=== PATIENT | male | born 1960 | race Caucasian/White ===

== ENCOUNTER → 2018-08-31 14:25 | Outpatient (CLI) | payer BC | END | disposition home or self-care (01) | LOC: D.MRI 08-29 13:30 | DX: M25.511 Pain in right shoulder (principal) ==

== ENCOUNTER → 2019-02-13 12:38 | Outpatient (CLI) | payer BC ==
[~2019-02-13 12:38] MED LIST: CIPRO500 MG PO; FLAGYL500 MG PO; GABAPENTIN100 MG PO; KLONOPIN1 MG PO; MOBIC7.5 MG PO; ULTRAM50 MG PO
== END | disposition home or self-care (01) ==
LOC: D.CT 12:38
DX: K66.8 Other specified disorders of peritoneum (principal); R10.30 Lower abdominal pain, unspecified

== ENCOUNTER 2019-02-16 14:41 | Inpatient (IN) | payer BC ==
[2019-02-16] MEDS ORDERED: ULTRAM50 MG PO (14:54)
[2019-02-16] MEDS ORDERED: GABAPENTIN100 MG PO (14:54)
[2019-02-16] MEDS ORDERED: MOBIC7.5 MG PO (14:54)
[2019-02-16] MEDS ORDERED: KLONOPIN1 MG PO (14:55)
[2019-02-16] MEDS ORDERED: CIPRO500 MG PO (14:55)
[2019-02-16] MEDS ORDERED: FLAGYL500 MG PO (14:55)
[2019-02-16 15:50] LABS: BASOPHILS 0.2 % (0-2); EOSINOPHILS 0.2 % (0-7); HEMATOCRIT 45.9 % (42.0-54.0); HEMOGLOBIN 15.8 g/dL (13.5-17.5); IMMATURE GRANULOCYTES 0.4 % (0-5); LYMPHOCYTES 12.9 % (15-50); MCH 30.9 pg (26.0-34.0); MCHC 34.4 g/dL (31.0-37.0); MCV 89.8 fL (80.0-100.0); MEAN PLATELET VOLUME 9.1 fL (7.4-10.4); MONOCYTES 8.3 % (2-11); PLATELET COUNT 275 10x3/uL (130-400); RBC 5.11 10x6/uL (4.20-6.10); RDW 13.1 % (11.5-14.5); WBC 10.9 10x3/uL (4.8-10.8)
[2019-02-16 16:14] LABS: ALBUMIN 2.6 g/dL (3.4-5.0); ALKALINE PHOSPHATASE 57 U/L (46-116); ALT (SGPT) 9 U/L (10-68); BILIRUBIN - TOTAL 0.56 mg/dL (0.2-1.3); CALC OSMOLALITY 276 mosm/kg (275-300); CALCIUM 8.2 mg/dL (8.5-10.1); CARBON DIOXIDE 30.6 mmol/L (21.0-32.0); CHLORIDE - SERUM 99 mmol/L (98-107); CREATININE - SERUM 1.2 mg/dL (0.6-1.3); GLUCOSE 141 mg/dL (74-106); POTASSIUM - SERUM 3.5 mmol/L (3.5-5.1); PROTEIN - SERUM 7.2 g/dL (6.4-8.2); SODIUM 137 mmol/L (136-145); UREA NITROGEN 15 mg/dL (7-18); eGFR NON AFRICAN AMERICAN 66 mL/min (90-120)
[2019-02-16 16:17] LABS: APPEARANCE HAZY (CLEAR); BILIRUBIN NEGATIVE (NEGATIVE); COLOR DK YELLOW (YELLOW); GLUCOSE NEGATIVE (NEGATIVE); KETONE NEGATIVE (NEGATIVE); NITRITE NEGATIVE (NEGATIVE); PROTEIN NEGATIVE (NEGATIVE); UROBILINOGEN NORMAL (NORMAL)
[2019-02-16 16:18] LABS: AMYLASE - SERUM 23 U/L (25-115); LIPASE 95 U/L (73-393)
[2019-02-16 16:20] LABS: TROPONIN-I < 0.017 ng/mL (0.000-0.060)
[2019-02-16 20:00] VITALS: BP 105/52
[2019-02-16 20:12] VITALS: BP 105/52; BMI 28.9
[2019-02-17] VITALS: BP 119/63
[2019-02-17 06:24] LABS: BASOPHILS 0.2 % (0-2); EOSINOPHILS 1.4 % (0-7); HEMATOCRIT 38.8 % (42.0-54.0); HEMOGLOBIN 13.2 g/dL (13.5-17.5); IMMATURE GRANULOCYTES 0.6 % (0-5); LYMPHOCYTES 20.6 % (15-50); MCH 30.4 pg (26.0-34.0); MCV 89.4 fL (80.0-100.0); MONOCYTES 16.9 % (2-11); NEUTROPHILS 60.3 % (40-80); PLATELET COUNT 258 10x3/uL (130-400); RBC 4.34 10x6/uL (4.20-6.10); RDW 13.3 % (11.5-14.5); WBC 8.4 10x3/uL (4.8-10.8)
[2019-02-17 06:41] LABS: CALC OSMOLALITY 277 mosm/kg (275-300); CALCIUM 7.7 mg/dL (8.5-10.1); CARBON DIOXIDE 27.3 mmol/L (21.0-32.0); CHLORIDE - SERUM 106 mmol/L (98-107); CREATININE - SERUM 0.9 mg/dL (0.6-1.3); GLUCOSE 109 mg/dL (74-106); POTASSIUM - SERUM 3.5 mmol/L (3.5-5.1); SODIUM 139 mmol/L (136-145); eGFR NON AFRICAN AMERICAN > 90 mL/min (90-120)
[2019-02-17 06:45] LABS: UREA NITROGEN 10 mg/dL (7-18)
[2019-02-17 09:54] VITALS: BP 116/59
[2019-02-17 13:43] VITALS: BP 137/82
--- NOTE | 2019-02-17 16:01 | MORECARE ---
CASE MANAGEMENT DISCHARGE SUMMARY PATIENT: HEMALATHA GUIDRY UNIT: [id number] ADM DATE: 02/16/19 AGE: 58 : 56 SEX: M ROOM/BED: D.2232 AUTHOR: SONDRA SALMERON PHYSICIAN: REFERRING PHYSICIAN: PAN VALLADARES MD DATE OF SERVICE: 02/17/19 Discharge Plan Patient Name: [facility]ALATHA [facility]UIDRY [facility] [facility] 1960 Planned Disposition: Home Anticipated Discharge Date: Discharge Date: Expected LOS: Initial Reviewer: [email or web address] Initial Review Date: 02/16/2019 Generated: 02/17/19 5:01 pm Patient Name: HEMALATHA GUIDRY Page [id number] at 1601 All edits/amendments must be made on the electronic document DICTATION DATE: 02/17/19 1600 TELEVISION SCHEDULE COORDINATOR: CONCEPCIÓN 02/17/19 1600 RPT#: [id number] DC DATE: STATUS: ADM IN [facility] [address] [place] [address] END OF REPORT
--- NOTE | 2019-02-17 16:08 | MORECARE ---
CASE MANAGEMENT DISCHARGE SUMMARY PATIENT: HEMALATHA GUIDRY UNIT: [id number] ADM DATE: 02/16/19 AGE: 58 : 56 SEX: M ROOM/BED: D.2232 AUTHOR: SONDRA SALMERON PHYSICIAN: REFERRING PHYSICIAN: PAN VALLADARES MD DATE OF SERVICE: 02/17/19 Discharge Plan Patient Name: HEMALATHA GUIDRY [facility] [facility] 1960 Planned Disposition: Home Anticipated Discharge Date: Discharge Date: Expected LOS: Initial Reviewer: [email or web address] Initial Review Date: 02/16/2019 Generated: 02/17/19 5:08 pm DCPIA - Discharge Planning Initial Assessment Updated by [email or web address]: Shakira Story on 02/17/19 4:03 pm * Is the patient Alert and Oriented? Yes * How many steps to enter\exit or inside your home? 3 & 10 * PCP ALLEGRA CARROLL * Pharmacy [facility] * Preadmission Environment Home Alone * ADLs Independent * Equipment None * Other Equipment N/A * List name and contact numbers for known caregivers / representatives who currently or will assist patient after discharge: ESTEFANY GUIDRY- [employer]THER- [phone] * Verbal permission to speak to the caregivers and representatives has been obtained from the patient. No * Community resources currently utilized None * Please name any agencies selected above. N/A * Additional services required to return to the preadmission environment? No * Can the patient safely return to the preadmission environment? Yes * Has this patient been hospitalized within the prior 30 days at any hospital? No Last DP export: 02/17/19 3:01 pm Patient Name: HEMALATHA GUIDRY Page [id number] at 1608 All edits/amendments must be made on the electronic document DICTATION DATE: 02/17/191607 GARMENT MENDER: CONCEPCIÓN 02/17/191607 RPT#: [id number] DC DATE: STATUS: ADM IN [facility] [address] [place] [address] END OF REPORT
--- NOTE | 2019-02-17 16:15 | MORECARE ---
CASE MANAGEMENT DISCHARGE SUMMARY PATIENT: HEMALATHA GUIDRY UNIT: [id number] ADM DATE: 02/16/19 AGE: 58 : 56 SEX: M ROOM/BED: D.2232 AUTHOR: JARON,DOC PHYSICIAN: REFERRING PHYSICIAN: PAN VALLADARES MD DATE OF SERVICE: 02/17/19 Discharge Plan Patient Name: HEMALATAH GUIDRY Facility: [facility]:[place] : 1960 Planned Disposition: Home Anticipated Discharge Date: Discharge Date: Expected LOS: Initial Reviewer: [email or web address] Initial Review Date: 02/16/2019 Generated: 02/17/19 5:15 pm Comments DCP- Discharge Planning Updated by [email or web address]: Shakira Story on 02/17/19 3:[address] CM MET WITH PATIENT AT THE BEDSIDE. ALERT AND ORIENTED X4. PLANS TO RETURN TO HIS HOME AT DISCHARGE. WILL HAVE TRANSPORTATION. DENIES ANY NEEDS. DOES NOT REQUIRE ANY SERVICES. WAS INDEPENDENT IN HIS CARE. ANSWERS QUESTIONS W/ SHORT SENTENCES. HE HAS 3 STEPS TO ENTER HIS HOME. HAS 10 STEPS TO GET UPSTAIRS. RAILING IS PRESENT. PCP- DR ESTEFANY [facility] DENIES ANY NEEDS AT THIS TIME. C/O CHILLS . CM ADVISED INTERMODAL DISPATCHER TO NOTIFY HIS NURSE. CM WILL FOLLOW TO ASSIST IF APPROPRIATE. DCPIA - Discharge Planning Initial Assessment Updated by [email or web address]: Shakira Story on 02/17/19 4:03 pm * Is the patient Alert and Oriented? Yes * How many steps to enter\exit or inside your home? 3 & 10 * PCP DR ESTEFANY MESA - [facility] * Pharmacy [facility] * Preadmission Environment Home Alone * ADLs Independent * Equipment None * Other Equipment N/A * List name and contact numbers for known caregivers / representatives who currently or will assist patient after discharge: ESTEFANY CHAO- BROTHER- [phone] * Verbal permission to speak to the caregivers and representatives has been obtained from the patient. No * Community resources currently utilized None * Please name any agencies selected above. N/A * Additional services required to return to the preadmission environment? No * Can the patient safely return to the preadmission environment? Yes * Has this patient been hospitalized within the prior 30 days at any hospital? No Last DP export: 02/17/19 3:08 pm Patient Name: HEMALATHA GUIDRY Page [id number] at 1615 All edits/amendments must be made on the electronic document DICTATION DATE: 02/17/191614 PROFESSIONAL HEALTHCARE REPRESENTATIVE: CONCEPCIÓN 02/17/191614 RPT#: [id number] DC DATE: STATUS: ADM IN [facility] [address] [place] [address] END OF REPORT
[2019-02-17 17:49] VITALS: BP 111/63
[2019-02-17 20:00] VITALS: BP 116/67
[2019-02-18] VITALS: BP 108/59
[2019-02-18 03:00] VITALS: BP 130/76
[2019-02-18 08:10] LABS: BASOPHILS 0.3 % (0-2); EOSINOPHILS 1.5 % (0-7); HEMATOCRIT 37.3 % (42.0-54.0); HEMOGLOBIN 12.5 g/dL (13.5-17.5); IMMATURE GRANULOCYTES 0.6 % (0-5); LYMPHOCYTES 17.2 % (15-50); MCHC 33.5 g/dL (31.0-37.0); MCV 89.7 fL (80.0-100.0); MEAN PLATELET VOLUME 8.8 fL (7.4-10.4); MONOCYTES 12.7 % (2-11); NEUTROPHILS 67.7 % (40-80); PLATELET COUNT 254 10x3/uL (130-400); RBC 4.16 10x6/uL (4.20-6.10); RDW 13.3 % (11.5-14.5); WBC 8.8 10x3/uL (4.8-10.8)
[2019-02-18 08:15] LABS: ALKALINE PHOSPHATASE 40 U/L (46-116); ALT (SGPT) 8 U/L (10-68); BILIRUBIN - TOTAL 0.42 mg/dL (0.2-1.3); CALC OSMOLALITY 276 mosm/kg (275-300); CALCIUM 7.7 mg/dL (8.5-10.1); CARBON DIOXIDE 25.9 mmol/L (21.0-32.0); CHLORIDE - SERUM 105 mmol/L (98-107); CREATININE - SERUM 0.9 mg/dL (0.6-1.3); GLUCOSE 156 mg/dL (74-106); POTASSIUM - SERUM 3.3 mmol/L (3.5-5.1); PROTEIN - SERUM 5.8 g/dL (6.4-8.2); SODIUM 138 mmol/L (136-145); UREA NITROGEN 7 mg/dL (7-18); eGFR NON AFRICAN AMERICAN > 90 mL/min (90-120)
[2019-02-18 10:07] VITALS: BP 159/59
[2019-02-18 15:23] VITALS: BMI 28.9
[2019-02-18 15:40] LABS: % SATURATION 17 % (15-55); IRON 25 ug/dl (35-150); TOTAL IRON BIND CAPACITY 143 ug/dl (260-445); UNSAT IRON BIND CAPACITY 118 ug/dl (150-375)
[2019-02-18 18:12] VITALS: BP 138/84
[2019-02-18 21:57] VITALS: BP 121/66
[2019-02-19 05:19] VITALS: BP 134/50
[2019-02-19 05:32] LABS: BASOPHILS 0.1 % (0-2); EOSINOPHILS 0.2 % (0-7); HEMATOCRIT 37.4 % (42.0-54.0); HEMOGLOBIN 12.3 g/dL (13.5-17.5); IMMATURE GRANULOCYTES 0.6 % (0-5); LYMPHOCYTES 12.3 % (15-50); MCH 29.9 pg (26.0-34.0); MCHC 32.9 g/dL (31.0-37.0); MCV 90.8 fL (80.0-100.0); MEAN PLATELET VOLUME 8.8 fL (7.4-10.4); MONOCYTES 14.7 % (2-11); NEUTROPHILS 72.1 % (40-80); PLATELET COUNT 255 10x3/uL (130-400); RBC 4.12 10x6/uL (4.20-6.10); RDW 13.4 % (11.5-14.5)
[2019-02-19 06:02] LABS: WBC 11.3 10x3/uL (4.8-10.8)
[2019-02-19 06:22] LABS: ALBUMIN 1.9 g/dL (3.4-5.0); BILIRUBIN - TOTAL 0.36 mg/dL (0.2-1.3); CALCIUM 7.5 mg/dL (8.5-10.1); CARBON DIOXIDE 27.5 mmol/L (21.0-32.0); CREATININE - SERUM 1.1 mg/dL (0.6-1.3); POTASSIUM - SERUM 3.5 mmol/L (3.5-5.1); PROTEIN - SERUM 5.7 g/dL (6.4-8.2)
[2019-02-19 08:55] VITALS: BP 119/71
[2019-02-19 09:17] LABS: FOLATE (FOLIC ACID) - SERUM 4.3 ng/mL (>3.0)
[2019-02-19 12:24] VITALS: BP 113/68
[2019-02-19 16:45] VITALS: BP 126/69
[2019-02-19 21:18] VITALS: BP 114/64
[2019-02-20 05:27] LABS: BASOPHILS 0.2 % (0-2); EOSINOPHILS 0.5 % (0-7); HEMATOCRIT 35.9 % (42.0-54.0); IMMATURE GRANULOCYTES 0.5 % (0-5); LYMPHOCYTES 18.6 % (15-50); MCHC 33.4 g/dL (31.0-37.0); MCV 89.8 fL (80.0-100.0); MEAN PLATELET VOLUME 8.7 fL (7.4-10.4); MONOCYTES 19.6 % (2-11); NEUTROPHILS 60.6 % (40-80); PLATELET COUNT 255 10x3/uL (130-400); RDW 13.3 % (11.5-14.5)
[2019-02-20 05:40] LABS: ALBUMIN 1.8 g/dL (3.4-5.0); ALKALINE PHOSPHATASE 40 U/L (46-116); BILIRUBIN - TOTAL 0.38 mg/dL (0.2-1.3); CALCIUM 7.3 mg/dL (8.5-10.1); CARBON DIOXIDE 24.9 mmol/L (21.0-32.0); CHLORIDE - SERUM 104 mmol/L (98-107); CREATININE - SERUM 0.9 mg/dL (0.6-1.3); GLUCOSE 104 mg/dL (74-106); POTASSIUM - SERUM 3.2 mmol/L (3.5-5.1); PROTEIN - SERUM 5.6 g/dL (6.4-8.2); SODIUM 137 mmol/L (136-145); eGFR NON AFRICAN AMERICAN > 90 mL/min (90-120)
[2019-02-20 05:53] LABS: WBC 8.1 10x3/uL (4.8-10.8)
[2019-02-20 05:59] VITALS: BP 117/68
[2019-02-20 06:21] LABS: ALT (SGPT) 9 U/L (10-68); CALC OSMOLALITY 270 mosm/kg (275-300); UREA NITROGEN 5 mg/dL (7-18)
[2019-02-20 08:18] LABS: IMMUNOGLOBULIN A 299 mg/dL (90-386)
[2019-02-20 09:41] VITALS: BP 120/76
[2019-02-20 15:09] VITALS: BP 111/69
[2019-02-20 17:54] VITALS: BP 113/66
[2019-02-20 22:22] VITALS: BP 121/61
[2019-02-21 05:16] VITALS: BP 112/54
[2019-02-21 06:16] LABS: IGG SUBCLASS 1 358 mg/dL (248-810); IGG SUBCLASS 2 396 mg/dL (130-555); IGG SUBCLASS 3 39 mg/dL (15-102); IGG SUBCLASS 4 28 mg/dL (2-96); IMMUNOGLOBULIN G 808 mg/dL (700-1600)
[2019-02-21 07:18] LABS: BASOPHILS 0.2 % (0-2); EOSINOPHILS 0.1 % (0-7); HEMATOCRIT 37.6 % (42.0-54.0); HEMOGLOBIN 12.8 g/dL (13.5-17.5); IMMATURE GRANULOCYTES 0.3 % (0-5); LYMPHOCYTES 13.2 % (15-50); MCH 30.1 pg (26.0-34.0); MCV 88.5 fL (80.0-100.0); MEAN PLATELET VOLUME 8.5 fL (7.4-10.4); MONOCYTES 16.4 % (2-11); NEUTROPHILS 69.8 % (40-80); PLATELET COUNT 264 10x3/uL (130-400); RBC 4.25 10x6/uL (4.20-6.10); RDW 13.1 % (11.5-14.5); WBC 9.6 10x3/uL (4.8-10.8)
[2019-02-21 07:34] LABS: ALBUMIN 1.9 g/dL (3.4-5.0); ALKALINE PHOSPHATASE 38 U/L (46-116); BILIRUBIN - TOTAL 0.59 mg/dL (0.2-1.3); CALC OSMOLALITY 276 mosm/kg (275-300); CALCIUM 7.7 mg/dL (8.5-10.1); CARBON DIOXIDE 24.9 mmol/L (21.0-32.0); CHLORIDE - SERUM 107 mmol/L (98-107); CREATININE - SERUM 0.9 mg/dL (0.6-1.3); GLUCOSE 125 mg/dL (74-106); POTASSIUM - SERUM 3.5 mmol/L (3.5-5.1); PROTEIN - SERUM 5.9 g/dL (6.4-8.2); SODIUM 140 mmol/L (136-145); UREA NITROGEN 4 mg/dL (7-18); eGFR NON AFRICAN AMERICAN > 90 mL/min (90-120)
[2019-02-21 07:38] LABS: ALT (SGPT) 12 U/L (10-68)
[2019-02-21 09:05] VITALS: BP 119/73
[2019-02-21 12:47] VITALS: BP 126/69
[2019-02-21 20:34] VITALS: BP 127/69
[2019-02-22 05:15] VITALS: BP 101/59
[2019-02-22 05:52] LABS: BASOPHILS 0.1 % (0-2); EOSINOPHILS 0.5 % (0-7); HEMATOCRIT 35.5 % (42.0-54.0); HEMOGLOBIN 12.1 g/dL (13.5-17.5); IMMATURE GRANULOCYTES 0.4 % (0-5); MCH 30.3 pg (26.0-34.0); MCHC 34.1 g/dL (31.0-37.0); MCV 88.8 fL (80.0-100.0); MEAN PLATELET VOLUME 8.4 fL (7.4-10.4); MONOCYTES 13.2 % (2-11); NEUTROPHILS 76.8 % (40-80); PLATELET COUNT 271 10x3/uL (130-400); RDW 13.3 % (11.5-14.5); WBC 9.6 10x3/uL (4.8-10.8)
[2019-02-22 06:11] LABS: ALBUMIN 1.7 g/dL (3.4-5.0); ALKALINE PHOSPHATASE 41 U/L (46-116); ALT (SGPT) 10 U/L (10-68); BILIRUBIN - TOTAL 0.52 mg/dL (0.2-1.3); CALCIUM 7.4 mg/dL (8.5-10.1); CARBON DIOXIDE 25.7 mmol/L (21.0-32.0); CHLORIDE - SERUM 101 mmol/L (98-107); CREATININE - SERUM 0.9 mg/dL (0.6-1.3); GLUCOSE 125 mg/dL (74-106); POTASSIUM - SERUM 3.4 mmol/L (3.5-5.1); PROTEIN - SERUM 5.6 g/dL (6.4-8.2); SODIUM 135 mmol/L (136-145); eGFR NON AFRICAN AMERICAN > 90 mL/min (90-120)
[2019-02-22 06:13] LABS: CALC OSMOLALITY 268 mosm/kg (275-300); UREA NITROGEN 6 mg/dL (7-18)
[2019-02-22 08:31] VITALS: BP 116/69
[2019-02-22 13:02] VITALS: BP 116/71
[2019-02-22 16:44] VITALS: BP 118/67
[2019-02-22 19:08] LABS: OVA + PARASITE EXAM Final report (())
[2019-02-22 20:01] VITALS: BP 121/68
[2019-02-23 01:25] VITALS: BP 113/77
[2019-02-23 04:57] VITALS: BP 104/61
[2019-02-23 05:37] LABS: BASOPHILS 0.2 % (0-2); EOSINOPHILS 0.2 % (0-7); HEMATOCRIT 36.9 % (42.0-54.0); HEMOGLOBIN 12.7 g/dL (13.5-17.5); IMMATURE GRANULOCYTES 0.6 % (0-5); LYMPHOCYTES 8.1 % (15-50); MCH 30.5 pg (26.0-34.0); MCHC 34.4 g/dL (31.0-37.0); MCV 88.7 fL (80.0-100.0); MEAN PLATELET VOLUME 8.4 fL (7.4-10.4); MONOCYTES 13.4 % (2-11); NEUTROPHILS 77.5 % (40-80); PLATELET COUNT 287 10x3/uL (130-400); RBC 4.16 10x6/uL (4.20-6.10); WBC 9.6 10x3/uL (4.8-10.8)
[2019-02-23 06:05] LABS: CALC OSMOLALITY 272 mosm/kg (275-300); CALCIUM 7.5 mg/dL (8.5-10.1); CARBON DIOXIDE 26.3 mmol/L (21.0-32.0); CHLORIDE - SERUM 103 mmol/L (98-107); CREATININE - SERUM 0.8 mg/dL (0.6-1.3); GLUCOSE 127 mg/dL (74-106); POTASSIUM - SERUM 3.3 mmol/L (3.5-5.1); SODIUM 137 mmol/L (136-145); UREA NITROGEN 5 mg/dL (7-18); eGFR NON AFRICAN AMERICAN > 90 mL/min (90-120)
[2019-02-23 09:06] VITALS: BP 102/66
[2019-02-23 13:53] VITALS: BP 95/57
[2019-02-23 16:24] VITALS: BP 121/75
[2019-02-23 20:25] VITALS: BP 138/77
[2019-02-24 00:25] VITALS: BP 94/54
[2019-02-24 03:41] VITALS: BP 103/56
[2019-02-24 05:17] LABS: BASOPHILS 0.2 % (0-2); EOSINOPHILS 0.3 % (0-7); HEMATOCRIT 34.7 % (42.0-54.0); HEMOGLOBIN 11.7 g/dL (13.5-17.5); IMMATURE GRANULOCYTES 0.7 % (0-5); LYMPHOCYTES 15.4 % (15-50); MCH 29.9 pg (26.0-34.0); MCHC 33.7 g/dL (31.0-37.0); MCV 88.7 fL (80.0-100.0); MEAN PLATELET VOLUME 8.3 fL (7.4-10.4); MONOCYTES 14.8 % (2-11); NEUTROPHILS 68.6 % (40-80); PLATELET COUNT 298 10x3/uL (130-400); RBC 3.91 10x6/uL (4.20-6.10); RDW 13.3 % (11.5-14.5); WBC 8.7 10x3/uL (4.8-10.8)
[2019-02-24 05:27] LABS: CALC OSMOLALITY 276 mosm/kg (275-300); CALCIUM 7.2 mg/dL (8.5-10.1); CARBON DIOXIDE 26.2 mmol/L (21.0-32.0); CHLORIDE - SERUM 105 mmol/L (98-107); CREATININE - SERUM 0.9 mg/dL (0.6-1.3); GLUCOSE 107 mg/dL (74-106); POTASSIUM - SERUM 3.4 mmol/L (3.5-5.1); SODIUM 140 mmol/L (136-145); eGFR NON AFRICAN AMERICAN > 90 mL/min (90-120)
[2019-02-24 05:29] LABS: UREA NITROGEN 7 mg/dL (7-18)
[2019-02-24 09:08] VITALS: BP 111/68
[2019-02-24 13:36] VITALS: BP 105/66
[2019-02-24 18:14] VITALS: BP 115/69
[2019-02-24 19:50] VITALS: BP 114/67
[2019-02-25 04:28] VITALS: BP 115/66
[2019-02-25 04:55] LABS: BASOPHILS 0.1 % (0-2); EOSINOPHILS 0.8 % (0-7); HEMATOCRIT 35.1 % (42.0-54.0); IMMATURE GRANULOCYTES 0.5 % (0-5); LYMPHOCYTES 13.5 % (15-50); MCH 30.3 pg (26.0-34.0); MCHC 34.2 g/dL (31.0-37.0); MCV 88.6 fL (80.0-100.0); MEAN PLATELET VOLUME 7.9 fL (7.4-10.4); MONOCYTES 13.1 % (2-11); PLATELET COUNT 308 10x3/uL (130-400); RBC 3.96 10x6/uL (4.20-6.10); RDW 13.1 % (11.5-14.5); WBC 7.5 10x3/uL (4.8-10.8)
[2019-02-25 05:07] LABS: CALC OSMOLALITY 277 mosm/kg (275-300); CALCIUM 7.5 mg/dL (8.5-10.1); CHLORIDE - SERUM 105 mmol/L (98-107); CREATININE - SERUM 0.9 mg/dL (0.6-1.3); GLUCOSE 119 mg/dL (74-106); POTASSIUM - SERUM 3.6 mmol/L (3.5-5.1); SODIUM 140 mmol/L (136-145); UREA NITROGEN 7 mg/dL (7-18); eGFR NON AFRICAN AMERICAN > 90 mL/min (90-120)
[2019-02-25 09:01] VITALS: BP 97/61
[2019-02-25 12:57] VITALS: BP 131/75
[2019-02-25 20:00] VITALS: BP 98/59
[2019-02-26 04:00] VITALS: BP 98/66
[2019-02-26 05:37] LABS: BASOPHILS 0.5 % (0-2); EOSINOPHILS 2.2 % (0-7); HEMATOCRIT 35.2 % (42.0-54.0); HEMOGLOBIN 11.9 g/dL (13.5-17.5); IMMATURE GRANULOCYTES 0.9 % (0-5); MCH 30.3 pg (26.0-34.0); MCHC 33.8 g/dL (31.0-37.0); MCV 89.6 fL (80.0-100.0); MEAN PLATELET VOLUME 8.2 fL (7.4-10.4); MONOCYTES 13.5 % (2-11); NEUTROPHILS 61.9 % (40-80); PLATELET COUNT 330 10x3/uL (130-400); RBC 3.93 10x6/uL (4.20-6.10); RDW 13.2 % (11.5-14.5); WBC 6.5 10x3/uL (4.8-10.8)
[2019-02-26 05:52] LABS: CALC OSMOLALITY 276 mosm/kg (275-300); CALCIUM 7.7 mg/dL (8.5-10.1); CARBON DIOXIDE 28.8 mmol/L (21.0-32.0); CHLORIDE - SERUM 103 mmol/L (98-107); CREATININE - SERUM 0.9 mg/dL (0.6-1.3); GLUCOSE 122 mg/dL (74-106); POTASSIUM - SERUM 3.3 mmol/L (3.5-5.1); SODIUM 139 mmol/L (136-145); UREA NITROGEN 8 mg/dL (7-18); eGFR NON AFRICAN AMERICAN > 90 mL/min (90-120)
[2019-02-26 09:34] VITALS: BP 101/65
[2019-02-26 13:38] VITALS: BP 136/70
[2019-02-26 18:14] VITALS: BP 96/59
[2019-02-26 20:00] VITALS: BP 90/60
[2019-02-27 04:00] VITALS: BP 99/64
[2019-02-27 05:25] LABS: BASOPHILS 0.3 % (0-2); EOSINOPHILS 1.5 % (0-7); HEMOGLOBIN 11.7 g/dL (13.5-17.5); IMMATURE GRANULOCYTES 0.5 % (0-5); LYMPHOCYTES 18.4 % (15-50); MCHC 33.4 g/dL (31.0-37.0); MCV 89.7 fL (80.0-100.0); MEAN PLATELET VOLUME 8.1 fL (7.4-10.4); MONOCYTES 11.8 % (2-11); NEUTROPHILS 67.5 % (40-80); PLATELET COUNT 372 10x3/uL (130-400); RDW 13.3 % (11.5-14.5); WBC 7.8 10x3/uL (4.8-10.8)
[2019-02-27 05:42] LABS: CALC OSMOLALITY 274 mosm/kg (275-300); CALCIUM 7.7 mg/dL (8.5-10.1); CARBON DIOXIDE 29.9 mmol/L (21.0-32.0); CHLORIDE - SERUM 102 mmol/L (98-107); CREATININE - SERUM 0.9 mg/dL (0.6-1.3); GLUCOSE 99 mg/dL (74-106); POTASSIUM - SERUM 3.6 mmol/L (3.5-5.1); SODIUM 138 mmol/L (136-145); UREA NITROGEN 10 mg/dL (7-18); eGFR NON AFRICAN AMERICAN > 90 mL/min (90-120)
[2019-02-27 09:37] VITALS: BP 103/63
[2019-02-27 20:00] VITALS: BP 107/65
[2019-02-28 04:00] VITALS: BP 104/52
[2019-02-28 05:49] LABS: BASOPHILS 0.3 % (0-2); EOSINOPHILS 1.9 % (0-7); HEMATOCRIT 35.8 % (42.0-54.0); IMMATURE GRANULOCYTES 0.7 % (0-5); MCH 30.4 pg (26.0-34.0); MCHC 33.5 g/dL (31.0-37.0); MCV 90.6 fL (80.0-100.0); MEAN PLATELET VOLUME 7.9 fL (7.4-10.4); MONOCYTES 14.9 % (2-11); NEUTROPHILS 65.2 % (40-80); PLATELET COUNT 392 10x3/uL (130-400); RBC 3.95 10x6/uL (4.20-6.10); RDW 13.3 % (11.5-14.5); WBC 7.4 10x3/uL (4.8-10.8)
[2019-02-28 06:07] LABS: ALBUMIN 1.7 g/dL (3.4-5.0); ALKALINE PHOSPHATASE 36 U/L (46-116); ALT (SGPT) 9 U/L (10-68); BILIRUBIN - TOTAL 0.39 mg/dL (0.2-1.3); CALC OSMOLALITY 276 mosm/kg (275-300); CARBON DIOXIDE 29.9 mmol/L (21.0-32.0); CHLORIDE - SERUM 104 mmol/L (98-107); CREATININE - SERUM 0.9 mg/dL (0.6-1.3); GLUCOSE 114 mg/dL (74-106); POTASSIUM - SERUM 3.8 mmol/L (3.5-5.1); SODIUM 139 mmol/L (136-145); eGFR NON AFRICAN AMERICAN > 90 mL/min (90-120)
[2019-02-28 06:08] LABS: UREA NITROGEN 7 mg/dL (7-18)
[2019-02-28 08:35] VITALS: BP 107/59
[2019-02-28 12:37] VITALS: BP 110/67
[2019-02-28 17:47] VITALS: BP 104/57
[2019-02-28 20:00] VITALS: BP 117/63
[2019-03-01] VITALS: BP 116/69
[2019-03-01 04:00] VITALS: BP 110/74
[2019-03-01 06:36] LABS: BASOPHILS 0 % (0-2); EOSINOPHILS 0 % (0-7); HEMATOCRIT 38.8 % (42.0-54.0); IMMATURE GRANULOCYTES 0.6 % (0-5); LYMPHOCYTES 8.8 % (15-50); MCH 30.4 pg (26.0-34.0); MCHC 33.5 g/dL (31.0-37.0); MCV 90.7 fL (80.0-100.0); MEAN PLATELET VOLUME 8.2 fL (7.4-10.4); MONOCYTES 1.9 % (2-11); NEUTROPHILS 88.7 % (40-80); PLATELET COUNT 431 10x3/uL (130-400); RBC 4.28 10x6/uL (4.20-6.10); RDW 13.3 % (11.5-14.5); WBC 5.3 10x3/uL (4.8-10.8)
[2019-03-01 06:48] LABS: ALKALINE PHOSPHATASE 38 U/L (46-116); ALT (SGPT) 11 U/L (10-68); BILIRUBIN - TOTAL 0.35 mg/dL (0.2-1.3); CALCIUM 8.4 mg/dL (8.5-10.1); CARBON DIOXIDE 27.7 mmol/L (21.0-32.0); CHLORIDE - SERUM 102 mmol/L (98-107); CREATININE - SERUM 0.9 mg/dL (0.6-1.3); PROTEIN - SERUM 6.6 g/dL (6.4-8.2); SODIUM 138 mmol/L (136-145); eGFR NON AFRICAN AMERICAN > 90 mL/min (90-120)
[2019-03-01 06:50] LABS: CALC OSMOLALITY 281 mosm/kg (275-300); GLUCOSE 215 mg/dL (74-106); POTASSIUM - SERUM 4.5 mmol/L (3.5-5.1); UREA NITROGEN 12 mg/dL (7-18)
[2019-03-01 07:59] VITALS: BP 103/67
[2019-03-01 12:59] VITALS: BP 108/73
[2019-03-01 16:03] VITALS: BP 116/82
[2019-03-01 19:56] VITALS: BP 120/74
[2019-03-02 06:00] LABS: BASOPHILS 0 % (0-2); EOSINOPHILS 0 % (0-7); HEMATOCRIT 38.4 % (42.0-54.0); HEMOGLOBIN 12.9 g/dL (13.5-17.5); IMMATURE GRANULOCYTES 0.7 % (0-5); LYMPHOCYTES 7.6 % (15-50); MCH 30.4 pg (26.0-34.0); MCHC 33.6 g/dL (31.0-37.0); MCV 90.6 fL (80.0-100.0); MEAN PLATELET VOLUME 8.2 fL (7.4-10.4); MONOCYTES 4.9 % (2-11); NEUTROPHILS 86.8 % (40-80); PLATELET COUNT 442 10x3/uL (130-400); RBC 4.24 10x6/uL (4.20-6.10); RDW 13.2 % (11.5-14.5)
[2019-03-02 06:05] LABS: WBC 9.3 10x3/uL (4.8-10.8)
[2019-03-02 06:24] LABS: ALBUMIN 1.9 g/dL (3.4-5.0); ALKALINE PHOSPHATASE 34 U/L (46-116); ALT (SGPT) 13 U/L (10-68); CALC OSMOLALITY 287 mosm/kg (275-300); CALCIUM 8.4 mg/dL (8.5-10.1); CARBON DIOXIDE 30.2 mmol/L (21.0-32.0); CHLORIDE - SERUM 105 mmol/L (98-107); CREATININE - SERUM 0.8 mg/dL (0.6-1.3); GLUCOSE 232 mg/dL (74-106); POTASSIUM - SERUM 4.8 mmol/L (3.5-5.1); PROTEIN - SERUM 6.2 g/dL (6.4-8.2); SODIUM 141 mmol/L (136-145); UREA NITROGEN 12 mg/dL (7-18); eGFR NON AFRICAN AMERICAN > 90 mL/min (90-120)
[2019-03-02 08:59] VITALS: BP 100/58
[2019-03-02] MEDS ORDERED: FLORAJEN3 CAPS460 MG PO (10:35)
[2019-03-02] MEDS ORDERED: Delzicol PO (10:35)
[2019-03-02] MEDS ORDERED: FOLIC ACID1 MG PO (10:35)
[2019-03-02] MEDS ORDERED: PROTONIX40 MG PO (10:35)
[2019-03-02] MEDS ORDERED: VIBRAMYCIN 100100 MG PO (10:35)
[2019-03-02] MEDS ORDERED: VITAMIN B-1100 M1 PO (10:36)
[2019-03-02] MEDS ORDERED: PREDNISONE10 MG PO (10:38)
== END 2019-03-02 11:42 | disposition home or self-care (01) | DRG 385 ==
LOC: D.ER 14:41 → D.EDHOLD 18:03 → D.MS 18:51
PROVIDERS: Family Medicine; Internal Medicine Gastroenterology; Internal Medicine Nephrology; Internal Medicine Pulmonary Disease; Surgery; ADMIT Family Medicine
PROC: 0DBN8ZX Excision of Sigmoid Colon, Via Natural or Artificial Opening Endoscopic, Diagnostic (ICD-10-PCS; principal; 2019-02-28 14:53)
DX: K51.30 Ulcerative (chronic) rectosigmoiditis without complications (principal); E43 Unspecified severe protein-calorie malnutrition; D62 Acute posthemorrhagic anemia; E86.0 Dehydration; F41.8 Other specified anxiety disorders; L73.2 Hidradenitis suppurativa; T50.995A Adverse effect of other drugs, medicaments and biological substances, initial encounter

== ENCOUNTER → 2019-04-15 13:31 | Outpatient (CLI) | payer BC ==
[2019-02-19 18:42] VITALS: BMI 28.9
[~2019-04-15 13:31] MED LIST changes: +Delzicol PO; +FLORAJEN3 CAPS460 MG PO; +FOLIC ACID1 MG PO; +PREDNISONE10 MG PO; +PROTONIX40 MG PO; +VIBRAMYCIN 100100 MG PO; +VITAMIN B-1100 M1 PO
[2019-04-15 14:12] LABS: ALBUMIN 2.8 g/dL (3.4-5.0); ALKALINE PHOSPHATASE 78 U/L (46-116); ALT (SGPT) 16 U/L (10-68); BILIRUBIN - TOTAL 0.27 mg/dL (0.2-1.3); CALC OSMOLALITY 275 mosm/kg (275-300); CALCIUM 8.6 mg/dL (8.5-10.1); CARBON DIOXIDE 27.6 mmol/L (21.0-32.0); CHLORIDE - SERUM 104 mmol/L (98-107); CREATININE - SERUM 0.9 mg/dL (0.6-1.3); POTASSIUM - SERUM 3.8 mmol/L (3.5-5.1); PROTEIN - SERUM 6.7 g/dL (6.4-8.2); SODIUM 139 mmol/L (136-145); UREA NITROGEN 7 mg/dL (7-18); eGFR NON AFRICAN AMERICAN > 90 mL/min (90-120)
[2019-04-15 14:14] LABS: GLUCOSE 107 mg/dL (74-106)
[2019-04-15 15:46] LABS: ERYTHROCYTE SEDIMENTATION RATE 65 mm/hr (0-20)
[2019-04-15 16:00] LABS: HEMATOCRIT 41.5 % (42.0-54.0); HEMOGLOBIN 14.6 g/dL (13.5-17.5); MCH 30.4 pg (26.0-34.0); MCHC 35.2 g/dL (31.0-37.0); MCV 86.5 fL (80.0-100.0); MEAN PLATELET VOLUME 8.6 fL (7.4-10.4); RDW 13.8 % (11.5-14.5); WBC 6.2 10x3/uL (4.8-10.8)
[2019-04-15 16:05] LABS: PLATELET COUNT 286 10x3/uL (130-400)
[2019-04-15 16:56] LABS: EOSINOPHILS 5 % (0-7); LYMPHOCYTES 31 % (15-50); MONOCYTES 3 % (2-11); NEUTROPHILS 59 % (40-80); PLATELET ESTIMATE NORMAL
== END | disposition home or self-care (01) ==
LOC: D.LAB 13:31
PROVIDERS: ATTEND Internal Medicine Gastroenterology
DX: K50.90 Crohn's disease, unspecified, without complications (principal)